=== PATIENT | female | born 2005 | race Caucasian/White ===

== ENCOUNTER 2025-04-30 16:13 | Inpatient (IN) | payer OTHER, MEDICAID ==
[~2025-04-30] VITALS: Ht 162.6 cm; Wt 73.0 kg
[2025-04-30 16:21] VITALS: O2SAT 100
[2025-04-30 17:37] LABS: BASOPHILS % 0.7 % (0.0-2.0); EOSINOPHILS % 2.0 % (0.0-5.0); HEMATOCRIT. 40.2 % (36.0-48.0); HEMOGLOBIN. 13.6 g/dL (12.0-16.0); LYMPHOCYTES % 16.2 % (20.0-50.0); MEAN PLATELET VOLUME 8.3 fl (7.4-10.4); MONOCYTES % 5.2 % (2.0-8.0); NEUTROPHILS % 75.9 % (40.0-76.0); PLATELET 343 x1000/uL (130-400); RED BLOOD CELL COUNT 4.24 mill/uL (4.2-5.4); RED CELL DISTRIBUTION WIDTH 12.2 % (11.6-14.6)
[2025-04-30 17:51] LABS: HCG SCREEN NEGATIVE
[2025-04-30 18:01] LABS: CREATININE 0.8 mg/dL (0.6-1.0); TROPONIN I HIGH SENSITIVITY < 4 ng/L (3.0-34); UREA NITROGEN BLOOD 11 mg/dL (9-23)
[2025-04-30 18:03] LABS: ASPARTATE AMINOTRANSFERASE 26 IU/L (<34); BILIRUBIN DIRECT 0.2 mg/dL (<=3.0); BILIRUBIN TOTAL 0.7 mg/dL (0.1-1.0); PROTEIN TOTAL 7.0 g/dL (6.0-8.3)
[2025-04-30 18:06] LABS: B-HCG QUANTITATIVE < 1 mIU/mL (<6)
[2025-04-30] MEDS: MORPHINE SULFATE 4 MG/ML INJ (FOR IV/IM USE) IV ONE (18:14)
[2025-04-30] MEDS: ONDANSETRON HCL 4MG/2ML INJ IV ONE (18:14)
[2025-04-30] MEDS: SODIUM CHLORIDE 0.9% 1,000 ML IV ONE (18:14)
[2025-04-30 19:20] LABS: CLARITY URINE TURBID (CLEAR); GLUCOSE URINE NEGATIVE (NEGATIVE); KETONES URINE 1+ (NEGATIVE); LEUKOCYTE ESTERASE URINE 2+ (NEGATIVE); NITRITE URINE POSITIVE (NEGATIVE); OCCULT BLOOD URINE NEGATIVE (NEGATIVE); PH URINE >=9.0 (4.5-8.0); PROTEIN URINE 1+ (NEGATIVE); SPECIFIC GRAVITY URINE 1.024 (1.005-1.030); UROBILINOGEN URINE 1.0 E.U./dL (0.2-1.0)
[2025-04-30 19:26] LABS: *AMPHETAMINES SCREEN URINE NEGATIVE (NEGATIVE); *BARBITURATES SCREEN URINE NEGATIVE (NEGATIVE); *BENZODIAZEPINES SCREEN URINE NEGATIVE (NEGATIVE); *COCAINE SCREEN URINE NEGATIVE (NEGATIVE); CANNABINOID URINE SCREEN NEGATIVE (NEGATIVE); ECSTASY MDMA SCREEN URINE NEGATIVE (NEGATIVE); METHADONE URINE SCREEN NEGATIVE (NEGATIVE); OPIATES URINE SCREEN PRESUMPTIVE POSITIVE (NEGATIVE); PHENCYCLIDINE URINE SCREEN NEGATIVE (NEGATIVE)
[2025-04-30] MEDS: CEFTRIAXONE 2GM/50ML 50 ML IV NR (19:34)
[2025-04-30 19:37] LABS: COLOR URINE YELLOW (YELLOW)
[2025-04-30 19:38] LABS: RBC URINE NONE SEEN /hpf (0-2)
[2025-04-30 19:39] LABS: BACTERIA URINE 4+; SQUAMOUS EPITHELIAL CELL URINE 1+ /lpf (RARE/1+); TRIPLE PHOSPHATE CRYSTAL URINE 2+ /lpf
[2025-04-30 19:40] LABS: COARSE GRANULAR CASTS URINE 0-5 /lpf; MUCUS URINE TRACE /lpf (< = 2+)
[2025-04-30 20:00] VITALS: BP 106/66; PULSE 60; RESP 20; TEMP 36.5; TEMP 36.5292; O2SAT 98
[2025-04-30] MEDS ORDERED: NALOXONE HCL 0.4MG/ML VIAL IV PRN (20:45)
[2025-04-30] MEDS ORDERED: MORPHINE SULFATE 2 MG/ML INJ (NOT FOR IM USE) IV PRN (20:45)
[2025-04-30] MEDS ORDERED: MORPHINE SULFATE 4 MG/ML INJ (FOR IV/IM USE) IV PRN (20:45)
[2025-04-30] MEDS ORDERED: KETOROLAC 30MG/ML VIAL IV PRN (20:45)
[2025-04-30] MEDS ORDERED: IPRATROPIUM/ALBUTEROL 0.5-3(2.5)MG/3ML NEB HHN PRN (20:45)
[2025-04-30] MEDS ORDERED: ONDANSETRON HCL 4MG/2ML INJ IV PRN (20:45)
[2025-04-30] MEDS ORDERED: ACETAMINOPHEN 325MG TABLET PO PRN (20:45)
[2025-04-30] MEDS: SODIUM CHLORIDE 0.9% 1,000 ML IV SCH (21:15)
[2025-04-30] MEDS: PIPERACILLIN/TAZO 3.375G/50ML 50 ML IV SCH (21:46)
[2025-05-01] VITALS: BP 100/52; PULSE 72; RESP 18; TEMP 36.2; O2SAT 97
[2025-05-01 04:00] VITALS: BP 97/59; PULSE 44; RESP 18; TEMP 36.2; O2SAT 98
[2025-05-01] MEDS: DEXT 5%/0.9% NACL 1,000 ML IV SCH (06:15)
[2025-05-01 08:00] VITALS: BP 91/48; PULSE 45; RESP 18; TEMP 37.1; O2SAT 95
[2025-05-01 08:43] LABS: BASOPHILS % 0.9 % (0.0-2.0); EOSINOPHILS % 4.4 % (0.0-5.0); HEMATOCRIT. 36.3 % (36.0-48.0); HEMOGLOBIN. 12.5 g/dL (12.0-16.0); LYMPHOCYTES % 39.5 % (20.0-50.0); MEAN PLATELET VOLUME 8.7 fl (7.4-10.4); MONOCYTES % 8.5 % (2.0-8.0); NEUTROPHILS % 46.7 % (40.0-76.0); PLATELET 296 x1000/uL (130-400); RED BLOOD CELL COUNT 3.83 mill/uL (4.2-5.4); RED CELL DISTRIBUTION WIDTH 12.2 % (11.6-14.6)
[2025-05-01 09:00] LABS: CREATININE 0.7 mg/dL (0.6-1.0); TRIGLYCERIDE 35 mg/dL (0-150); UREA NITROGEN BLOOD 8 mg/dL (9-23)
[2025-05-01 09:01] LABS: LDL CHOLESTEROL 64 mg/dL (5-100)
[2025-05-01 09:02] LABS: PHOSPHORUS 4.2 mg/dL (2.5-4.9)
[2025-05-01 09:04] LABS: T4 FREE 1.24 ng/dL (0.89-1.76)
[2025-05-01] MEDS ORDERED: IOHEXOL-300 100 ML BOTTLE ONE (09:08)
[2025-05-01] MEDS: PANTOPRAZOLE SODIUM 40 MG/VIAL IV SCH (09:15)
[2025-05-01 12:00] VITALS: BP 106/67; PULSE 52; RESP 18; TEMP 36.9; O2SAT 100
[2025-05-01 16:00] VITALS: BP 128/86; PULSE 71; RESP 20; TEMP 36.7; O2SAT 100
[2025-05-01 20:00] VITALS: BP 96/48; PULSE 56; RESP 18; TEMP 36.6; O2SAT 98
[2025-05-01] MEDS: ACETAMINOPHEN 325MG TABLET PO PRN (20:53)
[2025-05-02] VITALS: BP 108/62; PULSE 53; RESP 18; TEMP 36.4; O2SAT 98
[2025-05-02 04:00] VITALS: BP 97/78; PULSE 45; RESP 19; TEMP 36.3; O2SAT 97
[2025-05-02 08:00] VITALS: BP 102/55; PULSE 50; RESP 18; TEMP 36.6; O2SAT 97
[2025-05-02 10:26] LABS: PLATELET 301 x1000/uL (130-400); RED BLOOD CELL COUNT 4.01 mill/uL (4.2-5.4); RED CELL DISTRIBUTION WIDTH 12.3 % (11.6-14.6)
[2025-05-02 10:46] LABS: UREA NITROGEN BLOOD 5 mg/dL (9-23)
[2025-05-02 10:48] LABS: CREATININE 0.8 mg/dL (0.6-1.0)
[2025-05-02 10:50] LABS: ASPARTATE AMINOTRANSFERASE 53 IU/L (<34)
[2025-05-02 10:51] LABS: BILIRUBIN DIRECT 0.3 mg/dL (<=3.0); BILIRUBIN TOTAL 0.8 mg/dL (0.1-1.0); PHOSPHORUS 3.8 mg/dL (2.5-4.9); PROTEIN TOTAL 6.0 g/dL (6.0-8.3)
[2025-05-02 12:00] VITALS: BP 107/61; PULSE 61; RESP 18; TEMP 36.8; O2SAT 98
[2025-05-02 15:12] VITALS: BP 114/71; PULSE 61; RESP 18; TEMP 98.2
== END 2025-05-02 17:23 | disposition home or self-care (01) ==
LOC: ER 16:13 → 7WST 18:50 → EDBEDREQ 18:54 → EDBEDREQTM 18:54
PROVIDERS: ADMIT Hospitalist; ATTEND Hospitalist
DX: K80.00 Calculus of gallbladder with acute cholecystitis without obstruction (principal); N39.0 Urinary tract infection, site not specified
CPT/HCPCS: 36415; 71045; 76705; 80048; 80061; 80076; 80305; 81003; 82150; 83735; 83880; 84100; 84439; 84443; 84481; 84484; 84702; 84703; 85025; 85027; 93005; 93970; 99285; J0696; J2270; J2405; J2470; J2543; J7030; J7042; Q9967